=== PATIENT | male | born 1950 | race Caucasian/White ===

== ENCOUNTER 2018-01-26 12:43 | Emergency (ER) | payer MEDICARE, SELFPAY ==
[2018-01-26 12:50] VITALS: BP 126/81; PULSE 66; RESP 18; TEMP 36.3; O2SAT 99; BMI 25.7
--- NOTE | 2018-01-26 12:50 | ED.WOUNDLAC ---
HPI - Wound/Laceration General Chief Complaint: Wound/Laceration Stated Complaint: Hand Laceration Time Seen by Provider: 01/26/18 12:50 Source: patient and family Mode of arrival: ambulatory Limitations: no limitations History of Present Illness HPI narrative: Patient presents to the emergency department today with a chief complaint of a superficial laceration to the volar aspect of his left wrist suffered with a utility knife which was clean and new earlier today. He has full range of motion and denies numbness, tingling or weakness. His tetanus is up-to-date. Onset (ago): minute(s) Extremity Location: Left: wrist Place: home Patient tetanus UTD: Yes Context: accidental Related Data Home Medications Medication Instructions Recorded Confirmed omeprazole 1 mg PO EVERY OTHER DAY #1 05/16/17 01/26/18 albuterol sulfate [Ventolin HFA] 1 puff INH Q4H PRN 01/26/18 01/26/18 cyclobenzaprine 10 mg PO PRN PRN 01/26/18 01/26/18 Previous Rx's Medication Instructions Recorded doxycycline hyclate 100 mg PO BID #14 tab 01/26/18 Allergies Allergy/AdvReac Type Severity Reaction Status Date / Time Penicillins [PENICILLINS] Allergy Intermediate hives/sob Verified 01/26/18 12:50 Review of Systems Review of Systems All systems reviewed & are unremarkable except as noted in HPI and below Constitutional Denies chills, Denies fever(s), Denies lethargy and Denies weakness Eyes Denies change in vision, Denies eye discharge, Denies irritation and Denies loss of vision Cardiovascular Denies chest pain, Denies irregular heart rhythm, Denies lightheadedness, Denies palpitations and Denies orthopnea Gastrointestinal Gastrointestinal: Denies abdominal pain, Denies change in bowel habits, Denies diarrhea, Denies nausea and Denies vomiting Musculoskeletal Denies back pain, Denies muscle weakness, Denies numbness and Denies tingling Integumentary/Breasts Comments: laceration on L wrist Neurologic Denies loss of vision, Denies numbness, Denies tingling and Denies weakness Endocrine Denies palpitations PFSH Surgical History History of tonsillectomy Status post colonoscopy Family History Father Heart disease High cholesterol Mother Stroke Sister Age: 69 Cancer Exam Const General: cooperative and well developed Nutritional Appearance: well nourished Orientation: alert, awake, oriented x3 and not confused [facility] Head: normocephalic and atraumatic Ears: external ears normal and TM's normal bilaterally Nose: external nose normal and No nasal discharge Face and sinus: sinuses nontender, face symmetric, no sinus tenderness and No dry mucous membranes Mouth: oral mucosae normal and moist mucous membranes Teeth and gingiva: dentition normal Throat: tonsils normal and uvula midline Eyes General: appearance normal, both eyes and all related structures Eyelids: eyelids normal Conjunctivae: conjunctivae normal Sclera: sclerae normal Pupils: PERRL EOM: EOM intact bilaterally Chest Chest: normal inspection of the chest Resp Effort & Inspection: normal respiratory effort, able to speak in complete sentences, no respiratory distress and no use of accessory muscles Auscultation: clear to auscultation bilaterally, no rales, no rhonchi and no wheezes GI Inspection: non-distended Palpation: soft, no hepatosplenomegaly, No guarding, No pulsatile mass and No tender Auscultation: normal bowel sounds Skin Wounds: wounds noted Neuro General: alert, awake and oriented x3 Cognition: normal cognition Speech: speech normal Gait: normal gait Extrem Left upper extremity: wrist Details: laceration (3cm superficial. No tendon involvement) Procedures Joint Aspiration/Injection Laceration 1: Site: hand Side (If applicable): left Size (cm): 3 Description: linear Local Anesthetic: lidocaine 1% and with bicarb Skin layer closed with: nylon Size (cm): 4-0 Number of sutures: 7 Technique: simple, interrupted Course Last Vital Signs Temp 97.4 F L 01/26/18 12:50 Pulse 56 L 01/26/18 14:12 Resp 14 01/26/18 14:12 BP 119/81 H 01/26/18 14:12 Pulse Ox 99 01/26/18 14:12 Discharge Plan Departure Patient Disposition: Home, Self-Care Clinical Impression: Laceration Discharge Date/Time: 01/26/18 14:14 Interventions: ED Discharge Assessment Last Done: 01/26/18 14:14 Instructions: DI for Laceration Repair -- Simple Activity Restrictions/Additional Instructions: Please keep the wound clean and dry to the best of your ability. Please monitor for signs of infection such as redness to the skin or increasing pain. Have the sutures removed by your doctor in about 7-10 days. If you are unable to get into your doctor, we would be happy to remove the sutures in that same timeframe. Prescriptions: New doxycycline hyclate 100 mg tablet 100 mg PO BID Qty: 14 RF: 0 No Action omeprazole 20 mg Capsule,Delayed Release(Dr/Ec) 1 mg PO EVERY OTHER DAY Qty: 1 RF: 0 cyclobenzaprine 10 MG tablet 10 mg PO PRN PRN (Reason: Spasms) RF: 0 albuterol sulfate [Ventolin HFA] 90 MCG/PUFF HFA aerosol inhaler 1 puff INH Q4H PRN (Reason: Bronchodilation) RF: 0 Referrals: Rayo Patel MD [Primary Care Provider] -
[2018-01-26 14:12] VITALS: BP 119/81; PULSE 56; RESP 14; O2SAT 99
== END 2018-01-26 14:14 | disposition home or self-care (01) ==
PROVIDERS: Emergency Provider Emergency Medicine; Family Provider Family Medicine; PCP Family Medicine
DX: S61.419A Laceration without foreign body of unspecified hand, initial encounter (principal); W26.0XXA Contact with knife, initial encounter
CPT/HCPCS: 12001; 12002; 12011; 99282; 99283

== ENCOUNTER → 2018-11-04 08:33 | Outpatient (CLI) | payer MEDICARE, SELFPAY ==
[2018-11-04 09:47] LABS: Add Manual Diff / Slide Review NO; Basophils Absolute Auto 0 /uL (0-100); Basophils Percent Auto 0.8 % (0-2); Eosinophils Absolute Auto 100 /uL (0-450); Eosinophils Percent Auto 2.7 % (2-4); Hematocrit 46.5 % (41-53); Hemoglobin 15.8 g/dL (13.5-17.5); Lymphocytes Absolute Auto 1100 /uL (1100-4500); Lymphocytes Percent Auto 22.3 % (25-40); Mean Corpuscular HGB Conc 33.9 % (30-36); Mean Corpuscular Hemoglobin 30.7 PG (26-34); Mean Corpuscular Volume 90.6 fL (80-100); Monocytes Absolute Auto 400 /uL (0-900); Monocytes Percent Auto 7.9 % (3-14); Neutrophils Absolute Auto 3400 /uL (1500-7000); Neutrophils Percent Auto 66.3 % (50-75); Platelet Count 230 X10^3/uL (150-400); Red Blood Cell Count 5.14 X10^6/uL (4.5-5.9); White Blood Cell Count 5.1 X10^3/uL (4.5-11.0)
[2018-11-04 10:25] LABS: Alanine Aminotransferase 47 IU/L (21-72); Albumin 3.9 g/dL (3.5-5.0); Albumin Globulin Ratio 1.7 (1.0-2.8); Alkaline Phosphatase 55 U/L (38-126); Aspartate Aminotransferase 43 IU/L (17-59); BUN Creatinine Ratio 18.9 (6-22); Bilirubin Total 0.7 mg/dL (0.2-1.3); Blood Urea Nitrogen 17 mg/dL (9-20); Calcium 9.3 mg/dL (8.4-10.2); Carbon Dioxide 29 mmol/L (22-32); Chloride 105 mmol/L (98-107); Cholesterol 185 mg/dL (140-199); Estimated Glomerular Filt Rate > 60.0 mL/min (>60); Globulin 2.3 g/dL (1.7-4.1); Glucose 96 mg/dL (80-110); HDL Cholesterol 49 mg/dL (40-60); HEMOLYSIS < 15 (0-50); LDL Cholesterol Calculated 117 mg/dL (<100); Potassium 4.5 mmol/L (3.4-5.1); Sodium 140 mmol/L (137-145); Total Protein 6.2 g/dL (6.3-8.2); Triglycerides 95 mg/dL (35-150)
[2018-11-04 10:55] LABS: Prostate Specific Antigen Scrn 3.03 ng/mL (0.1-4.0)
== END ==
PROVIDERS: PCP Family Medicine; Visit Provider Family Medicine
DX: E78.2 Mixed hyperlipidemia (principal); Z12.5 Encounter for screening for malignant neoplasm of prostate; Z13.0 Encounter for screening for diseases of the blood and blood-forming organs and certain disorders involving the immune mechanism; Z13.1 Encounter for screening for diabetes mellitus; Z13.29 Encounter for screening for other suspected endocrine disorder
CPT/HCPCS: 36415; 80053; 80061; 84443; 85025; G0103

== ENCOUNTER → 2020-11-23 11:03 | Outpatient (CLI) | payer MEDICARE, SELFPAY ==
[2020-11-23 12:03] LABS: Hematocrit 42.4 % (41-53); Hemoglobin 14.7 g/dL (13.5-17.5); Mean Corpuscular HGB Conc 34.6 % (30-36); Mean Corpuscular Hemoglobin 31.1 PG (26-34); Mean Corpuscular Volume 90.1 fL (80-100); Platelet Count 220 X10^3/uL (150-400); Red Blood Cell Count 4.71 X10^6/uL (4.5-5.9); Red Cell Distribution Width 12.8 % (11.6-14.8); White Blood Cell Count 4.6 X10^3/uL (4.5-11.0)
[2020-11-23 12:17] LABS: Alanine Aminotransferase 23 IU/L (<50); Albumin 4.2 g/dL (3.5-5.0); Albumin Globulin Ratio 1.8 (1.0-2.8); Alkaline Phosphatase 58 U/L (38-126); Aspartate Aminotransferase 34 IU/L (17-59); BUN Creatinine Ratio 17.4 (6-22); Bilirubin Total 0.8 mg/dL (0.2-1.3); Blood Urea Nitrogen 15 mg/dL (9-20); Calcium 9.3 mg/dL (8.4-10.2); Carbon Dioxide 30 mmol/L (22-32); Chloride 105 mmol/L (98-107); Cholesterol 189 mg/dL (140-199); Estimated Glomerular Filt Rate > 60.0 mL/min (>60); Globulin 2.4 g/dL (1.7-4.1); Glucose 95 mg/dL (80-110); HDL Cholesterol 45 mg/dL (40-60); HEMOLYSIS < 15 (0-50); LDL Cholesterol Calculated 127 mg/dL (<100); Potassium 4.1 mmol/L (3.4-5.1); Sodium 137 mmol/L (137-145); Total Protein 6.6 g/dL (6.3-8.2); Triglycerides 83 mg/dL (35-150)
[2020-11-23 12:47] LABS: Prostate Specific Antigen Scrn 4.57 ng/mL (0.1-4.0)
== END ==
PROVIDERS: PCP Nurse Practitioner Family; Referring Provider Nurse Practitioner Family; Visit Provider Nurse Practitioner Family
DX: Z00.00 Encounter for general adult medical examination without abnormal findings (principal); E78.2 Mixed hyperlipidemia; Z12.5 Encounter for screening for malignant neoplasm of prostate; J45.909 Unspecified asthma, uncomplicated
CPT/HCPCS: 36415; 80053; 80061; 85027; G0103

== ENCOUNTER → 2020-12-27 08:53 | Outpatient (CLI) | payer MEDICARE, SELFPAY ==
[2020-12-27 11:03] LABS: Prostate Specific Antigen Scrn 3.46 ng/mL (0.1-4.0)
== END ==
PROVIDERS: PCP Nurse Practitioner Family; Referring Provider Nurse Practitioner Family; Visit Provider Nurse Practitioner Family
DX: Z12.5 Encounter for screening for malignant neoplasm of prostate (principal); R97.20 Elevated prostate specific antigen [PSA]; R35.1 Nocturia
CPT/HCPCS: 36415; 84153; G0103

== ENCOUNTER → 2021-01-06 09:07 | Outpatient (CLI) | payer MEDICARE, SELFPAY ==
--- NOTE | 2021-01-06 09:09 | DI.US.S_ITS ---
PROCEDURE: US ABD AORTA ANEURYSM SCREEN INDICATIONS: ABDOMINAL AORTIC ANEURYSM SCREENING TECHNIQUE: Real time scanning was performed of the aorta and iliac arteries, with image documentation. COMPARISON: None. FINDINGS: Aorta: Proximal aortic diameter measures 2.2 cm. Mid-aorta measures 1.9 cm. Distal aortic diameter is 1.7 cm. Iliac arteries: Right common iliac artery measures 1.3 cm. Left common iliac artery measures 1.3 cm. A simple appearing right mid kidney peripelvic cyst is incidentally noted that measures up to 6 cm. IMPRESSION: Negative for aneurysm. 6 cm simple appearing right kidney peripelvic cyst incidentally noted. Dictated by: Jason Davey M.D. on 01/06/2021 at 9:46 Approved by: Jason Davey M.D. on 01/06/2021 at 9:47
== END ==
PROVIDERS: PCP Nurse Practitioner Family; Referring Provider Nurse Practitioner Family; Visit Provider Nurse Practitioner Family
DX: Z13.6 Encounter for screening for cardiovascular disorders (principal); N28.1 Cyst of kidney, acquired
CPT/HCPCS: 76706